=== PATIENT | male | born 1975 | race Caucasian/White ===

== ENCOUNTER 2022-12-04 22:59 | Emergency (ER) | payer BC, OTHER ==
[2022-12-04] MEDS ORDERED: Boostrix 0.5 ML (Tdap) VIAL (>/=7 yrs of age) ONE (23:18)
[2022-12-04] MEDS ORDERED: Lidocaine 1% (PF) 30 ML VIAL ONE (23:23)
[2022-12-04] MEDS ORDERED: Bacitracin 1 PK ONE (23:24)
== END 2022-12-05 00:27 | disposition home or self-care (01) ==
LOC: MADERS 22:59
DX: S61.012A Laceration without foreign body of left thumb without damage to nail, initial encounter (principal); F17.210 Nicotine dependence, cigarettes, uncomplicated; Z23 Encounter for immunization; W26.9XXA Contact with unspecified sharp object(s), initial encounter
CPT/HCPCS: 12002; 90471; 90715; J2001